=== PATIENT | female | born 1980 | race Caucasian/White ===

== ENCOUNTER 2016-11-13 09:32 | Emergency (ER) | payer OTHER ==
[2016-11-13 09:42] VITALS: BP 113/79
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
[2016-11-13] MEDS ORDERED: MOTRIN PO ONE (11:09)
[2016-11-13] MEDS ORDERED: TYLENOL PO ONE (11:10)
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
== END 2016-11-13 11:30 | disposition home or self-care (01) ==
LOC: ED 09:32
DX: M79.672 Pain in left foot (principal)
CPT/HCPCS: 99284